=== PATIENT | female | born 1945 | race Caucasian/White ===

== ENCOUNTER 2017-03-06 15:43 | Inpatient (IN) | payer MEDICARE ==
[2017-03-06 16:28] LABS: #Basophils 0.1 thou/uL (0.0-0.2); #Lymphocytes 0.9 thou/uL (1.20-3.40); #Monocytes 0.4 thou/uL (0.11-0.59); %Basophils 0.9 % (0.0-1.0); %Eosinophils 0.5 % (0.0-10.0); %Lymphocytes 13.8 % (21.0-51.0); %Monocytes 6.8 % (0.0-10.0); Hematocrit 40.3 % (36.0-47.0); Mean Platelet Volume 6.7 fL (7.4-10.4); Red Blood Cell (RBC) Count 4.69 mill/uL (4.20-5.40); White Blood Cell (WBC) Count 6.4 thou/uL (4.8-10.8)
[2017-03-06 16:49] LABS: ALT (SGPT) 13 U/L (8-55); AST (SGOT) 18 U/L (5-34); Alkaline Phosphatase 73 U/L (40-150); Anion Gap 15 mmol/L (10-20); BUN (Urea Nitrogen) 13 mg/dL (9.8-20.1); Bilirubin, Total 0.4 mg/dL (0.2-1.2); Calc. Creatinine Clearance 0 mL/min (70-130); Calcium 9.1 mg/dL (7.8-10.44); Carbon Dioxide 26 mmol/L (23-31); Chloride 96 mmol/L (98-107); Estimated GFR-MDRD 66; Globulin 3.1 g/dL (2.4-3.5); Protein, Total 7.4 g/dL (6.0-8.3)
--- NOTE | 2017-03-06 16:53 | RAD ---
LEFT ELBOW TWO VIEW: 03/06/17 HISTORY: Fracture. COMPARISON: None. FINDINGS: There is a fracture of the radial head and neck involving approximately 25% of the articular surface . There is also a comminuted fracture of the proximal ulnar diaphysis sparing the olecranon. There is a large joint effusion. IMPRESSION: 1. Impacted fracture of the radial head and neck involving at least 25% of the articular surfac e with rotation of an anterior fragment of the radial head. 2. Fracture of the proximal ulnar metadiaphysis with minimal displacement although there is ext ensive comminution. 3. Large joint effusion. POS: [facility]
[2017-03-06] MEDS ORDERED: Fentanyl 100 MCG/2 ML VIAL ONE (17:07)
[2017-03-06] MEDS ORDERED: Ondansetron HCl/PF 4 MG/2 ML Vial ONE (17:39)
[2017-03-06] MEDS ORDERED: Morphine 2 MG/ML SYRINGE SLOW IVP PRN (18:01)
[2017-03-06] MEDS ORDERED: hydrALAZINE 20 MG/ML VIAL SLOW IVP PRN (18:23)
[2017-03-06] MEDS ORDERED: Dextrose 5% in Water 1,000 ML IV PRN (19:10)
[2017-03-06] MEDS ORDERED: Ondansetron HCl/PF 4 MG/2 ML Vial IVP PRN (19:10)
[2017-03-06] MEDS ORDERED: Ondansetron ODT 4 MG TAB PO PRN (19:10)
[2017-03-06] MEDS ORDERED: Dextrose 50% Abboject 50 ML SYRINGE SLOW IVP PRN (19:10)
--- NOTE | 2017-03-06 20:26 | RAD ---
AP VIEW OF THE CHEST: 03/06/17 INDICATION: Preop evaluation. COMPARISON: Prior PA and lateral of the chest dated June 11, 2013. IMPRESSION: No acute cardiopulmonary abnormality. COMMENTS: There are mild vascular calcification of the aortic arch. Heart size is normal. Lungs are clear. No pleural effusion or pneumothorax is evident. No acute osseous abnormalities noted. POS: [facility]
--- NOTE | 2017-03-06 20:57 | HP ---
DATE OF ADMISSION: 03/06/2017 ATTENDING PHYSICIAN: Dr. Johan Sadler. TRAUMA ACTIVATION: Not applicable. HISTORY OF PRESENT ILLNESS: Jocy Ceron is a 71-year-old female who presented to [place] ER af ter being seen at Urgent Care earlier today status post fall. She was evaluated at the urgent care and found to have a left elbow fracture. She was advised to present to [facility] for furt her evaluation and management. Upon evaluation in the emergency room, she was found to have a left elbow fracture. Orthopedic Surgery was notified, and patient and family elected for admission for o perative intervention to her elbow. Trauma Services was asked to admit. Patient states that she tr ipped and fell earlier today landing on her outstretched left arm. PAST MEDICAL HISTORY AND ALLERGIES: None. CHRONIC MEDICAL ILLNESS: Include hypertension, hyperlipidemia, hypothyroidism, and history of breas t cancer. HOME MEDICATIONS: Include Lexapro, unknown antihypertensive esterase and unknown neurologic medicat ion that she is currently discontinuing per Neurology recommendations. PAST SURGICAL HISTORY: Significant for bilateral mastectomy, breast reconstruction, gastric sleeve, rotator cuff repair, bunion removal and bilateral hammertoe correction. SOCIAL HISTORY: Patient is a retired [employer] professional. She endorses rare alcohol use. Denies tobac co or illicit drug use. FAMILY HISTORY: Significant for father with lung cancer. REVIEW OF SYSTEMS: Negative except as indicated in the HPI. PHYSICAL EXAMINATION: VITAL SIGNS: On evaluation include heart rate 93, blood pressure 155/81, O2 sat 94% on room air. P shana is currently being splinted. GENERAL: Well-developed, well-nourished female in mild to moderate distress secondary to pain while being splinted. HEAD: Normocephalic, atraumatic. EYES: Pupils were PERRL. Extraocular movements are intact. NECK: Supple. Trachea is midline. Range of motion within normal limits for patient. CHEST/PULMONARY: Normal work of breathing, symmetric rise. No tenderness to palpation. LUNGS: Clear to auscultation bilaterally. CARDIOVASCULAR: Regular rate and rhythm, no obvious murmurs, rubs or gallops. GASTROINTESTINAL: Abdomen is soft, nontender, nondistended, bowel sounds positive. MUSCULOSKELETAL: Left upper extremity being splinted. Right upper extremity and bilateral lower ex tremities within normal limits. NEUROLOGIC: GCS of 15. No focal deficit noted. LABORATORY FINDINGS: WBC 6.4, hemoglobin 13.5, hematocrit 40.3, platelet count 264. Sodium 133, po tassium 3.9, chloride 96, carbon dioxide 26, BUN 13, creatinine 0.85, glucose 108, AST and ALT withi n normal limits. RADIOGRAPHIC FINDINGS: Elbow x-ray is significant for impacted fracture of the radial head and neck involving at least 25% of the articular surface with the rotation of the anterior fragment of the r adial head, fracture of the proximal ulnar metadiaphysis with minimal displacement and combination i n the large joint effusion. ASSESSMENT: 1. Status post ground-level fall. 2. Acute traumatic pain. 3. Left proximal radius and ulnar fracture. PLAN: 1. Admit to Trauma Services, surgical floor. 2. Orthopedic surgery has been notified and plans for operative intervention in a.m. 3. Patient n.p.o. after midnight. 4. Perioperative pain management. 5. DVT and gastritis prophylaxis as appropriate. 6. Trauma attending has been notified of admission. Plans for admission have been discussed with t he patient, who is in agreement at this time.
[2017-03-06] MEDS: Morphine 10 MG/ML VIAL SLOW IVP PRN (21:12)
[2017-03-06] MEDS: traMADol HCl 50 MG TAB PO SCH (23:42)
[2017-03-06] MEDS: Ketorolac Tromethamine 30 MG/ML VIAL IVP SCH (23:43)
[2017-03-06] MEDS: Sodium Chloride 0.9% 1,000 ML IV SCH (23:46)
[2017-03-07 01:09] VITALS: BMI 25.4
[2017-03-07 04:31] LABS: #Eosinphils 0.1 thou/uL (0.0-0.7); #Lymphocytes 1.6 thou/uL (1.20-3.40); #Monocytes 0.8 thou/uL (0.11-0.59); #Neutrophils 3.8 thou/uL (1.40-6.50); %Basophils 0.4 % (0.0-1.0); %Eosinophils 1.5 % (0.0-10.0); %Lymphocytes 25.7 % (21.0-51.0); %Monocytes 12.6 % (0.0-10.0); Hematocrit 35.2 % (36.0-47.0); Mean Platelet Volume 6.8 fL (7.4-10.4); Red Blood Cell (RBC) Count 4.12 mill/uL (4.20-5.40); White Blood Cell (WBC) Count 6.4 thou/uL (4.8-10.8)
[2017-03-07 04:52] LABS: Anion Gap 15 mmol/L (10-20); BUN (Urea Nitrogen) 16 mg/dL (9.8-20.1); Calc. Creatinine Clearance 65 mL/min (70-130); Calcium 8.3 mg/dL (7.8-10.44); Carbon Dioxide 24 mmol/L (23-31); Chloride 98 mmol/L (98-107); Estimated GFR-MDRD 63; Phosphorus 4.2 mg/dL (2.3-4.7)
[2017-03-07] MEDS: Ketorolac Tromethamine 30 MG/ML VIAL IVP SCH ×4 (05:44→23:57)
[2017-03-07] MEDS: traMADol HCl 50 MG TAB PO SCH ×4 (05:45→23:58)
[2017-03-07] MEDS ORDERED: CEFAZOLIN/Water 2 GM/20 ML SYRINGE SLOW IVP SCH (08:30)
--- NOTE | 2017-03-07 09:23 | CON ---
DATE OF CONSULTATION: 03/07/2017 CHIEF COMPLAINT: Left elbow pain. HISTORY OF PRESENT ILLNESS: Ms. Ceron is a 71-year-old female who has fallen. She landed on her l eft arm yesterday. She lost her balance. She has a history of falling. She has a neurologic disor fernando which has affected her balance and has caused early dementia. She was seen in the emergency dep artment. She was splinted for her olecranon and radius fracture. She has been comfortable overnigh t. No new concerns or problems. PAST MEDICAL HISTORY: Early dementia, hyperlipidemia, and hypertension. ALLERGIES: None. PAST SURGICAL HISTORY: Previous mastectomy for breast cancer, previous hysterectomy, bilateral foot bunion surgery, and previous rotator cuff surgery. SOCIAL HISTORY: The patient denies tobacco, alcohol, or drug use. FAMILY MEDICAL HISTORY: Noncontributory. REVIEW OF SYSTEMS: Positive for left elbow pain. PHYSICAL EXAMINATION: VITAL SIGNS: Temperature is 97.5, pulse 76, respiratory rate 16, oxygen saturation 97%, blood press ure is 126/77. GENERAL: The patient is alert and oriented, no apparent distress, sitting upright. HEENT: Normocephalic and atraumatic. RESPIRATORY: Breathing comfortably. ABDOMEN: Soft, nontender, and nondistended. MUSCULOSKELETAL: The patient's left arm is splinted. She is able to flex and extend the fingers. Two second capillary refill. She feels normal sensation in the fingertips. Arm is resting in a sli ng. IMAGES: X-rays of the left elbow demonstrate an olecranon fracture with displacement. There is als o a radial head fracture with subluxation of the radial head on the capitellum. IMPRESSION: Left proximal ulna and radius fracture. PLAN: At this point, the patient will need to go to the operating room for open reduction and inter nal fixation of the left ulna. I think we can treat the radius nonoperatively. She will be n.p.o. She will have adequate pain control. She will likely be able to discharge home later today. She i s aware of risks and benefits and wants to proceed.
[2017-03-07] MEDS: Sodium Chloride 0.9% 1,000 ML IV SCH ×2 (09:43→21:57)
[2017-03-07] MEDS: Morphine 10 MG/ML VIAL SLOW IVP PRN ×2 (09:46→15:34)
[2017-03-07] MEDS ORDERED: CEFAZOLIN/Water 2 GM/20 ML SYRINGE ONE (10:31)
[2017-03-07] MEDS ORDERED: Fentanyl 100 MCG/2 ML VIAL ONE (10:40)
[2017-03-07] MEDS ORDERED: Midazolam HCl 2 mg/2 ml Vial ONE (10:40)
[2017-03-07] MEDS ORDERED: Propofol 200 MG/20 ML VIAL ONE (11:48)
[2017-03-07] MEDS ORDERED: Ketorolac Tromethamine 30 MG/ML VIAL ONE (11:48)
[2017-03-07] MEDS ORDERED: Lidocaine 1% PF 5 ML VIAL ONE ×2 (11:48→18:18)
[2017-03-07] MEDS ORDERED: ePHEDrine/0.9% NaCl/PF SYRINGE 50 mg/10 ml ONE (11:48)
[2017-03-07] MEDS ORDERED: Metoclopramide HCl 10 MG/2 ML VIAL ONE (11:48)
[2017-03-07] MEDS ORDERED: Glycopyrrolate 0.2 MG/ML 5 ML SYRINGE ONE (11:48)
[2017-03-07] MEDS ORDERED: Ondansetron HCl/PF 4 MG/2 ML Vial ONE (11:48)
[2017-03-07] MEDS ORDERED: Dexamethasone 20 MG/5 ML VIAL ONE (11:48)
[2017-03-07] MEDS ORDERED: diphenhydrAMINE 50 MG/ML VIAL ONE (11:48)
[2017-03-07] MEDS ORDERED: Bupivacaine PF 0.5% 30 ML VIAL ONE (12:52)
--- NOTE | 2017-03-07 13:10 | OP ---
DATE OF PROCEDURE: 03/07/2017 PROCEDURE: Open reduction internal fixation of left proximal ulna fracture with closed reduction of proximal radius fracture. PREOPERATIVE DIAGNOSIS: Left ulna and radius fracture. POSTOPERATIVE DIAGNOSIS: Left ulna and radius fracture. COMPLICATIONS: None. ESTIMATED BLOOD LOSS: Minimal. SURGEON: Brooks Cazares M.D. FINE DINING SERVER: CLAUDIA Velazquez INDICATIONS: Ms. Sandra is a 71-year-old female who has fallen. She fractured the left elbow inclu ding the olecranon and proximal ulna with a radial head fracture. She was indicated for open reduct ion internal fixation to restore alignment and promote healing. Risks have been reviewed in detail. She elected to proceed with the operation. DESCRIPTION OF PROCEDURE: Ms. Ceron was identified in the preoperative holding area. Her correct extremity was marked. She was carried to the operating room. She was positioned supine. General a nesthesia was induced. She was converted to the lateral decubitus position. We began the procedure after prepping and draping the left upper extremity. We made a posterior eunice guerin to the elbow. We dissected down through the subcutaneous tissues to the ulna. We exposed the underlying fracture. At this point, we reduced the fracture back into its anatomic position using a reduction clamp. We then placed 2 interfragmentary screws into a lateral fragment. Next, we appl ied a [employer]ynthes olecranon plate along the posterior cortex. Multiple screws were placed into the tip of the olecranon as well as distally along the shaft. We took x-ray images confirming hardware plac ement and reduction. There were no complications. We thoroughly irrigated with copious lavage. We then closed with 0 Vicryl suture, 2-0 Vicryl suture and eliana for the skin. A sterile splint was placed. The patient's radial head was reduced well after the ulna fixation was applied. IMPLANTS: Synthes olecranon plate variable angle locking.
[2017-03-07] MEDS ORDERED: Promethazine HCl 25 MG/ML VIAL IM PRN ×2 (14:00→18:51)
[2017-03-07] MEDS ORDERED: Promethazine HCl 25 MG/ML VIAL SLOW IVP PRN (14:00)
[2017-03-07] MEDS ORDERED: Ondansetron HCl/PF 4 MG/2 ML Vial IVP PRN ×2 (14:00→18:51)
--- NOTE | 2017-03-07 14:34 | DIS ---
DATE OF ADMISSION: 03/06/2017 DATE OF DISCHARGE: 03/07/2017 ADMISSION DIAGNOSES: 1. Status post ground level fall. 2. Acute traumatic pain. 3. Left proximal radius and ulnar fracture. DISCHARGE DIAGNOSES: 1. Status post ground level fall. 2. Acute traumatic pain. 3. Left proximal radius and ulnar fracture. CONSULTANTS: Dr. Cazares, Orthopedic Surgery. PROCEDURES: On 03/07/2017 open reduction and internal fixation of left proximal humeral fracture wi th closed reduction of the proximal radius fracture with Dr. Cazares, Orthopedic Surgery. HOSPITAL COURSE: Ms. Jocy Ceron is a 71-year-old female who had a ground level fall. She sustai tonya the above injuries. She presented to [facility] after being evaluated in Urgent Care with the above injuries. Orthopedic Surgery was notified. Trauma Service was asked to admit. The patient underwent operative intervention of her injuries on 03/07/2017. Postoperatively, the p atient's pain was controlled with p.o. analgesics. She was able to mobilize. She was discharged po stoperatively by Orthopedic Surgery. DISCHARGE DISPOSITION: Home. DISCHARGE CONDITION: Good. PHYSICAL EXAMINATION: VITAL SIGNS: During morning rounds, temperature 97.5, pulse 76, respirations 16, O2 sat 97% on room air, blood pressure 126/77. GENERAL: Well-developed, well-nourished female in no acute distress, resting in bed. PULMONARY: Normal work of breathing, symmetric rise. CARDIOVASCULAR: Regular rate and rhythm. GASTROINTESTINAL: Abdomen is soft, nontender, nondistended. Bowel sounds positive. MUSCULOSKELETAL: Moves all extremities x4, left upper extremity dressing clean, dry, and intact. S he is neurovascularly intact at distal side of her injury. She had slings placed. NEUROLOGIC: GCS 15. No focal deficit noted. DISCHARGE INSTRUCTIONS: Discharge instructions were provided to the patient and are as documented i n the electronic medical record. DISCHARGE MEDICATIONS: Were provided to the patient by Orthopedic Surgery. She may resume her home medication regimen. FOLLOWUP APPOINTMENTS: The patient is to follow up with Orthopedic Surgery as directed by their geoff castellanos. She should call their our office with any questions. She does not need to follow up with Trauma Services at this time, but may call our office with any questions. This is merely a summary of the patient's hospitalization. For more in depth information, please see her medical record in its ent irety.
--- NOTE | 2017-03-07 14:59 | RAD ---
LEFT ELBOW TWO FLUOROSCOPIC VIEWS FROM OR: History: ORIF FINDINGS/IMPRESSION: These films demonstrate plate and screws transfixing the proximal ulna. POS: [facility]
[2017-03-07] MEDS ORDERED: Zolpidem Tartrate 5 MG TAB PO PRN (18:51)
[2017-03-07] MEDS ORDERED: Ropivacaine 0.2% 550 ML 550 ML NERVE BLCK SCH (18:51)
[2017-03-08] MEDS: traMADol HCl 50 MG TAB PO SCH ×2 (06:05→11:37)
[2017-03-08] MEDS: Ketorolac Tromethamine 30 MG/ML VIAL IVP SCH (06:06)
[2017-03-08] MEDS: Sodium Chloride 0.9% 1,000 ML IV SCH (06:07)
[2017-03-08] MEDS ORDERED: HYDROcodone/Acetaminophen 5/325 mg Tablet PO PRN ×2 (07:09)
[2017-03-08 08:43] VITALS: BP 154/82; TEMP 97.6
== END 2017-03-08 12:13 | disposition home or self-care (01) | DRG 512 ==
LOC: ERS 15:43 → SURG A 19:01
PROVIDERS: ADMIT Specialist; ATTEND Specialist
PROC: 0PSL04Z Reposition Left Ulna with Internal Fixation Device, Open Approach (ICD-10-PCS; principal; 2017-03-07)
PROC: 0PSJXZZ Reposition Left Radius, External Approach (ICD-10-PCS; 2017-03-07)
PROC: 3E0T3BZ Introduction of Anesthetic Agent into Peripheral Nerves and Plexi, Percutaneous Approach (ICD-10-PCS; 2017-03-07)
DX: S52.022A Displaced fracture of olecranon process without intraarticular extension of left ulna, initial encounter for closed fracture (principal); F03.90 Unspecified dementia, unspecified severity, without behavioral disturbance, psychotic disturbance, mood disturbance, and anxiety; W01.0XXA Fall on same level from slipping, tripping and stumbling without subsequent striking against object, initial encounter; I10 Essential (primary) hypertension; E78.5 Hyperlipidemia, unspecified; R29.90 Unspecified symptoms and signs involving the nervous system; Z85.3 Personal history of malignant neoplasm of breast; Z90.13 Acquired absence of bilateral breasts and nipples; E03.9 Hypothyroidism, unspecified; Z90.710 Acquired absence of both cervix and uterus; S52.122A Displaced fracture of head of left radius, initial encounter for closed fracture; Z98.84 Bariatric surgery status
CPT/HCPCS: 29105; 36415; 71010; 76001; 80048; 80053; 83735; 84100; 85025; 96374; 96375; A4216; A4306; C1713; J0131; J0360; J1100; J1200; J1885; J2001; J2250; J2270; J2405; J2704; J2765; J2795; J3010; S0020

== ENCOUNTER 2017-09-13 07:28 | Outpatient (CLI) | payer MEDICARE | END 2017-09-13 07:29 | disposition home or self-care (01) | LOC: BICMRI 07:28 | PROVIDERS: ATTEND Otolaryngology Plastic Surgery within the Head & Neck | DX: H81.20 Vestibular neuronitis, unspecified ear (principal) | CPT/HCPCS: 70553 ==

== ENCOUNTER 2017-12-06 09:16 | Outpatient (CLI) | payer MEDICARE | END 2017-12-06 09:17 | disposition home or self-care (01) | LOC: BICCT 09:16 | PROVIDERS: ATTEND Otolaryngology Otology & Neurotology | DX: H80.91 Unspecified otosclerosis, right ear (principal) | CPT/HCPCS: 70480 ==

== ENCOUNTER 2019-05-12 08:21 | Outpatient (CLI) | payer MEDICARE ==
--- NOTE | 2019-05-08 10:05 | RAD ---
XR Skull Less Than 4 View HISTORY: MRI clearance. COMPARISON: None. FINDINGS: No metallic foreign bodies are seen. This was done for evaluation of a implant related to t he right year. A plain film examination is not adequate for determination for MR clearance. IMPRESSION: Plain film examination is not adequate for clearance for MR given patient's history.
--- NOTE | 2019-05-12 09:24 | MRI ---
BRAIN MRI WITH AND WITHOUT CONTRAST: HISTORY: Headache. Increased dizziness. Ischemic changes. COMPARISON: 04/06/2016. FINDINGS: Gradient echo sequence: No hemorrhage. Calvarium: Appropriate T1 marrow signal intensity. Midline brain parenchyma: Unremarkable. Cerebrum:No parenchymal mass, mass effect or midline shift. Age-appropriate atrophy. Cortical escobar-wh ite matter differentiation is preserved. T2 and FLAIR white matter hyperintensities due to chronic small vessel ischemic change. Overall degree and distribution of hyperintensities are similar to the previous exam. Ventricles: No evidence of hydrocephalus. Sinuses and mastoid air cells: Adequate aeration. Diffusion: Central arterial flow is maintained. Absent restricted diffusion. Postcontrast images: No pathologic enhancement of the brain parenchyma. IMPRESSION: 1. Absent restricted diffusion. No acute infarct. 2. Age-appropriate atrophy. 3. Redemonstration of T2 and FLAIR white matter hyperintensities suggesting chronic small vessel isch emic change. 4. No pathologic enhancement of the brain parenchyma. Transcribed Date/Time: 05/12/2019 9:53 AM
[2019-05-12] MEDS ORDERED: Magnevist 469MG/ML 20 ML VIAL ONE (16:32)
== END 2019-05-12 08:22 | disposition home or self-care (01) ==
LOC: MRI 08:21
PROVIDERS: ATTEND Family Medicine
DX: I67.82 Cerebral ischemia (principal); R51 Headache; G31.9 Degenerative disease of nervous system, unspecified
CPT/HCPCS: 70250; 70553; A9579

== ENCOUNTER 2020-07-28 07:46 | Outpatient (CLI) | payer MEDICARE | END 2020-07-28 07:47 | disposition home or self-care (01) | LOC: TBSIIMAG 07:46 | PROVIDERS: ATTEND Orthopaedic Surgery | DX: M87.00 Idiopathic aseptic necrosis of unspecified bone (principal); M17.12 Unilateral primary osteoarthritis, left knee; M85.862 Other specified disorders of bone density and structure, left lower leg; M89.9 Disorder of bone, unspecified; M25.462 Effusion, left knee; M22.2X2 Patellofemoral disorders, left knee ==

== ENCOUNTER 2020-08-30 13:06 | Outpatient (CLI) | payer MEDICARE ==
[2020-08-30 14:30] LABS: #Eosinphils 0.1 10x3/uL (0.0-0.5); #Monocytes 0.5 10x3/uL (0.0-1.1); #Neutrophils 1.9 10x3/uL (1.5-8.4); %Basophils 0.5 % (0.0-2.0); %Eosinophils 2.1 % (0.0-6.0); %Lymphocytes 35.8 % (18.0-47.0); %Monocytes 12.4 % (0.0-10.0); %Neutrophils 48.7 % (40.0-75.0); Hemoglobin 10.3 g/dL (12.0-15.5); Mean Corpuscular HGB CONC 30.6 g/dL (32.0-36.0); Mean Corpuscular Hemoglobin 23.8 pg (27.0-33.0); Mean Corpuscular Volume 77.8 fl (81.6-98.3); Mean Platelet Volume 9.2 fl (7.4-10.4); Platelet Count 360 10x3/uL (150-450); RBC Distribution Width 16.8 % (11.5-14.5); Red Blood Cell (RBC) Count 4.33 10x6/uL (3.90-5.03); White Blood Cell (WBC) Count 3.9 10x3/uL (3.5-10.5)
[2020-08-30 15:43] LABS: Anion Gap 14 mmol/L (10-20); BUN (Urea Nitrogen) 18 mg/dL (9.8-20.1); Calc. Creatinine Clearance 0 mL/min (70-130); Calcium 9.2 mg/dL (7.8-10.44); Carbon Dioxide 26 mmol/L (23-31); Chloride 100 mmol/L (98-107); Glucose 93 mg/dL (83-110); Potassium 4.2 mmol/L (3.5-5.1); Sodium 136 mmol/L (136-145)
[2020-08-31 01:18] LABS: SARS-CoV-2 PCR by NAA Not Detected (NotDetected)
== END 2020-08-30 13:07 | disposition home or self-care (01) ==
LOC: LABBT 13:06
PROVIDERS: ATTEND Orthopaedic Surgery
DX: Z01.818 Encounter for other preprocedural examination (principal); Z20.822 Contact with and (suspected) exposure to COVID-19; M17.12 Unilateral primary osteoarthritis, left knee
CPT/HCPCS: 80048; 85025; 93005; U0003; U0005; 87635; 93010

== ENCOUNTER 2020-09-02 05:55 | Day surgery (SDC) | payer MEDICARE ==
[2020-09-01 13:56] VITALS: BMI 22.3
[2020-09-02] MEDS ORDERED: PROPOFOL 20 ML ONE (07:04)
[2020-09-02] MEDS ORDERED: Lidocaine 2% w/Epinephrine 1:200K 20 ML VIAL ONE (07:25)
[2020-09-02] MEDS ORDERED: Ondansetron PF 4 MG/2 ML Vial ONE (07:25)
[2020-09-02] MEDS ORDERED: Dexamethasone 20 MG/5 ML VIAL ONE (07:25)
[2020-09-02] MEDS ORDERED: Bupivacaine HCl 0.5%/Epinephrine 1:200,000/PF 30 ml Vial ONE (07:25)
[2020-09-02] MEDS ORDERED: Fentanyl 100 MCG/2 ML VIAL ONE (07:47)
== END 2020-09-02 10:50 | disposition home or self-care (01) ==
LOC: SDC 05:55
PROVIDERS: ATTEND Orthopaedic Surgery
PROC: 0SBD4ZZ Excision of Left Knee Joint, Percutaneous Endoscopic Approach (ICD-10-PCS; principal; 2020-09-02)
DX: M23.204 Derangement of unspecified medial meniscus due to old tear or injury, left knee (principal); M17.12 Unilateral primary osteoarthritis, left knee; I10 Essential (primary) hypertension; E03.9 Hypothyroidism, unspecified; E78.5 Hyperlipidemia, unspecified; G43.909 Migraine, unspecified, not intractable, without status migrainosus; K21.9 Gastro-esophageal reflux disease without esophagitis; Z79.899 Other long term (current) drug therapy
CPT/HCPCS: J0690; J1100; J2405; J2704; J3010

== ENCOUNTER 2021-12-22 08:55 | Outpatient (CLI) | payer MEDICARE | END 2021-12-22 08:56 | disposition home or self-care (01) | LOC: BICMAMMO 08:55 | PROVIDERS: ATTEND Family Medicine | DX: Z13.820 Encounter for screening for osteoporosis (principal); M85.851 Other specified disorders of bone density and structure, right thigh; M85.852 Other specified disorders of bone density and structure, left thigh; Z78.0 Asymptomatic menopausal state | CPT/HCPCS: 77080 ==

== ENCOUNTER 2022-12-25 14:17 | Outpatient (CLI) | payer MEDICARE | END 2022-12-25 14:18 | disposition home or self-care (01) | LOC: BICMAMMO 14:17 | PROVIDERS: ATTEND Family Medicine | DX: Z13.820 Encounter for screening for osteoporosis (principal); M85.89 Other specified disorders of bone density and structure, multiple sites; Z78.0 Asymptomatic menopausal state | CPT/HCPCS: 77080 ==